=== PATIENT | female | born 1955 | race Native Hawaiian/Other Pacific Islander ===

== ENCOUNTER 2018-07-16 19:54 | Inpatient (IN) | payer SELFPAY ==
[~2018-07-16] VITALS: Ht 154.9 cm; Wt 84.8 kg
[2018-07-16] MEDS ORDERED: cloNIDine HCL 0.1 MG TAB PO ONE (20:15)
[2018-07-16] MEDS ORDERED: InsuLIN REG 1unit/0.01ml Soln (100units/ml) IV ONE (21:00)
[2018-07-16] MEDS ORDERED: SODIUM CHLORIDE 0.9% 1,000 ML IV ONE (21:00)
[2018-07-16 21:16] LABS: Basophils # (auto) 0 uL; Basophils % (auto) 0.7 % (0.0-2.0); Eosinophils # (auto) 0.2 uL; Eosinophils % (auto) 2.5 % (0.0-7.0); Hematocrit 40.6 % (36.0-46.0); Hemoglobin 13.4 g/dL (12.2-16.2); Lymphocytes % (auto) 31.7 % (10.0-50.0); Mean Corpuscular Hemoglobin 29.1 pg (28.0-32.0); Mean Corpuscular Hgb Conc. 32.9 g/dL (32.0-36.0); Mean Corpuscular Volume 88.4 fL (80.0-100.0); Monocytes # (auto) 0.4 uL; Monocytes % (auto) 6.2 % (0.0-12.0); Neutrophils # (auto) 3.7 uL; Neutrophils % (auto) 58.9 % (37.0-80.0); Nucleated Red Blood Cells % 0.1 %; Platelet Count (auto) 218 10^3/uL (140-450); Red Blood Cells 4.59 10^6/uL (4.0-5.20); Red Cell Distribution Width 13.3 % (11.8-14.3); White Blood Cell 6.2 10^3/uL (4.4-10.8)
[2018-07-16 21:17] LABS: Chloride 101 mmol/L (98-107); Potassium 4.3 mmol/L (3.5-5.1); Sodium 133 mmol/L (136-145)
[2018-07-16 21:19] LABS: Albumin 2.7 g/dL (3.4-5.0); Anion Gap 9 (5-15); Blood Urea Nitrogen 21 mg/dL (7-18); Calcium 8.2 mg/dL (8.5-10.1); Carbon Dioxide 23 mmol/L (21-32)
[2018-07-16 21:20] LABS: INR 0.87 (0.9-1.15); Partial Thromboplastin Time 25.4 sec (23.78-33.04); Prothrombin Time 9.4 sec (9.27-12.13)
[2018-07-16 21:22] LABS: Alanine Aminotransferase 18 U/L (13-56); Aspartate Aminotransferase 24 U/L (15-37); BUN/Creatinine Ratio 19.8; GFR African American 67 mL/min; GFR Non-African American 56 mL/min
[2018-07-16 21:25] LABS: Alkaline Phosphatase 120 U/L (45-117); Bilirubin, Total 0.3 mg/dL (0.2-1.0); Total Protein 7.2 g/dL (6.4-8.2)
[2018-07-16 21:38] LABS: Glucose 435 mg/dL (74-106)
[2018-07-16] MEDS ORDERED: ONDANSETRON HCL 4 MG/2 ML VIAL IV ONE (22:00)
[2018-07-16] MEDS ORDERED: FUROSEMIDE 20 MG/2 ML VIAL IV ONE (23:30)
[2018-07-17] MEDS ORDERED: ONDANSETRON HCL 4 MG/2 ML VIAL IV PRN (01:15)
[2018-07-17] MEDS ORDERED: NITROGLYCERIN 0.4 MG SL TAB SL PRN (01:15)
[2018-07-17] MEDS ORDERED: MORPHINE SULF INJ 2 MG/ML SYRINGE 1ML IV PRN (01:15)
[2018-07-17] MEDS ORDERED: TEMAZEPAM 15 MG CAP PO PRN (01:15)
[2018-07-17] MEDS ORDERED: ACETAMINOPHEN 325 MG TAB PO PRN (01:15)
[2018-07-17] MEDS ORDERED: IOHEXOL 350 MG/ML 100ML IJ ONE (01:18)
[2018-07-17] MEDS: HYDROcodone-ACET 5/325MG TAB PO PRN ×2 (02:15→10:34)
[2018-07-17 03:07] LABS: Urine Bacteria MANY /hpf (None Seen); Urine Blood 1+ /uL (Negative); Urine Hyaline Cast FEW /lpf (0 - 2); Urine Mucus FEW (None Seen); Urine WBC 24 /hpf (0 - 5)
[2018-07-17] MEDS ORDERED: DEXTROSE (50%) 50ML SYRG IV PRN (06:30)
[2018-07-17] MEDS: ASPirin 81 mg TAB PO SCH (10:25)
[2018-07-17] MEDS: FAMOTIDINE 20 MG TAB PO SCH ×2 (10:32→21:13)
[2018-07-17] MEDS: FUROSEMIDE 20 MG TAB PO SCH (10:32)
[2018-07-17] MEDS: amLODIPine BESYLATE 5 MG TAB PO SCH (10:32)
--- NOTE | 2018-07-17 11:00 | NUR ---
ADMIT: Telemetry admit from ER PEGGY QUEZADANOAHDELL admitted to Telemetry unit after SBAR received. Patient oriented to JASMIN ANDRADE, primary RN, unit, room, bed, and unit policies regarding patient care and visiting hours. Patient now on continuous telemetry monitoring, tele box # 32 and telemetry reading on arrival to unit is SR 64. Patient on room air, weighed by bedscale and encouraged to call if they need something. All questions and concerns addressed, patient verbalized understanding. Note:
[2018-07-17 11:10] VITALS: BP 136/71
[2018-07-17] MEDS ORDERED: PNEUMOCOCCAL VACC POLYS 25 MCG/0.5 ML VIAL IM ONE ×2 (11:45→16:00)
[2018-07-17] MEDS ORDERED: CARV6.25 PO (11:46)
[2018-07-17] MEDS ORDERED: METF-370 PO (11:46)
[2018-07-17] MEDS ORDERED: INSU70IN3 SC (11:46)
[2018-07-17] MEDS: ACCU-CHEK COMFORT CURVE STRIP VI SCH ×2 (12:00→18:00)
[2018-07-17] MEDS: InsuLIN REG 1unit/0.01ml Soln (100units/ml) SC SCH ×3 (12:00→17:40)
--- NOTE | 2018-07-17 12:40 | NUR ---
MD: Dr Browning at bedside to see patient.
[2018-07-17 13:00] VITALS: BP 148/71
[2018-07-17] MEDS ORDERED: INSULIN LANTUS (GLARGINE) 1 /0.01ml (100units/ml) SC ONE (13:00)
[2018-07-17 17:18] VITALS: BP 137/80
[2018-07-17] MEDS: INSULIN NPH Isophane (HUMAN) 1unit/0.01ml Susp(100units/ml) SC SCH (18:00)
--- NOTE | 2018-07-17 19:12 | NUR ---
CLOSING SHIFT NOTE: Report given to NOC RNJonathan. Endorsed care of patient.
--- NOTE | 2018-07-17 19:45 | NUR ---
Opening Shift Note Assumed care of patient, awake and alert. No S/S of distress/SOB or pain. Instructed on POC and to call for assist PRN, will continue to monitor for changes Q1hr and PRN.
[2018-07-17 21:11] VITALS: BP 113/66
[2018-07-17] MEDS: ATORVASTATIN 20 MG TAB PO SCH (21:14)
[2018-07-17] MEDS ORDERED: INSULIN LANTUS (GLARGINE) 1 /0.01ml (100units/ml) SC SCH (22:00)
--- NOTE | 2018-07-18 00:30 | NUR ---
The patient c/o a headache that she describes as a severity of 6 out 10. Will treat pain with PRN pain medication.
[2018-07-18] MEDS: HYDROcodone-ACET 5/325MG TAB PO PRN ×2 (00:44→22:29)
[2018-07-18 04:54] VITALS: BP 119/61
[2018-07-18] MEDS: ACCU-CHEK COMFORT CURVE STRIP VI SCH ×5 (06:00→22:00)
[2018-07-18] MEDS: InsuLIN REG 1unit/0.01ml Soln (100units/ml) SC SCH ×5 (06:00→22:00)
[2018-07-18 06:06] LABS: Basophils # (auto) 0 uL; Basophils % (auto) 0.7 % (0.0-2.0); Eosinophils # (auto) 0.3 uL; Hematocrit 37.6 % (36.0-46.0); Hemoglobin 12.8 g/dL (12.2-16.2); Lymphocytes # (auto) 2.2 uL; Lymphocytes % (auto) 39.4 % (10.0-50.0); Mean Corpuscular Hemoglobin 29.6 pg (28.0-32.0); Mean Corpuscular Hgb Conc. 34.1 g/dL (32.0-36.0); Mean Corpuscular Volume 86.8 fL (80.0-100.0); Monocytes # (auto) 0.4 uL; Monocytes % (auto) 6.8 % (0.0-12.0); Neutrophils # (auto) 2.7 uL; Neutrophils % (auto) 47.1 % (37.0-80.0); Platelet Count (auto) 195 10^3/uL (140-450); Red Blood Cells 4.33 10^6/uL (4.0-5.20); White Blood Cell 5.7 10^3/uL (4.4-10.8)
[2018-07-18 06:15] LABS: Calcium 8.2 mg/dL (8.5-10.1); Potassium 3.5 mmol/L (3.5-5.1)
[2018-07-18 06:18] LABS: BUN/Creatinine Ratio 27.1
[2018-07-18 06:31] LABS: Cholesterol 210 mg/dL (< 200); HDL Cholesterol 60 mg/dL (40-59); LDL Cholesterol 125 mg/dL (< 100); Triglycerides 206 mg/dL (< 150)
[2018-07-18] MEDS: INSULIN NPH Isophane (HUMAN) 1unit/0.01ml Susp(100units/ml) SC SCH ×2 (07:05→18:16)
--- NOTE | 2018-07-18 07:36 | NUR ---
CLOSING NOTE Care has been endorsed to day shift nurse.
[2018-07-18] MEDS: FAMOTIDINE 20 MG TAB PO SCH ×2 (09:42→22:30)
[2018-07-18] MEDS: FUROSEMIDE 20 MG TAB PO SCH ×2 (09:43→18:13)
[2018-07-18] MEDS: LISINOPRIL 5 MG TAB PO SCH (09:43)
[2018-07-18] MEDS: amLODIPine BESYLATE 5 MG TAB PO SCH (09:43)
[2018-07-18] MEDS: ASPirin 81 mg TAB PO SCH (09:44)
[2018-07-18 09:52] VITALS: BP 128/70
--- NOTE | 2018-07-18 11:37 | NUR ---
Re: BG BG 458 repeated BG 416, paged for further instruction. Patient does not have any other sign or symptoms will continue to monitor.
--- NOTE | 2018-07-18 11:43 | NUR ---
Re: paged Informed MD of the elevated BG, will give the 15 unit, and if still elevated change it to aggressive scale if BG above 350.
[2018-07-18 13:00] VITALS: BP 142/73
[2018-07-18 17:00] VITALS: BP 132/69
[2018-07-18] MEDS ORDERED: DEXTROSE (50%) 50ML SYRG IV PRN (17:30)
[2018-07-18 22:00] VITALS: BP 127/76
--- NOTE | 2018-07-18 22:15 | NUR ---
Patient c/o a headache and request pain medication. Will medicate with PRN pain medication.
[2018-07-18] MEDS: ATORVASTATIN 20 MG TAB PO SCH (22:30)
[2018-07-18] MEDS: POTASSIUM CHLORIDE 8 MEQ TAB PO SCH (22:30)
--- NOTE | 2018-07-18 22:45 | NUR ---
IV ATTEMPT Attempted to place an IV in the right forearm 2x but was unsuccessful.
[2018-07-19 05:53] VITALS: BP 140/83
[2018-07-19 06:16] LABS: Basophils # (auto) 0 uL; Basophils % (auto) 0.8 % (0.0-2.0); Eosinophils # (auto) 0.4 uL; Eosinophils % (auto) 6.6 % (0.0-7.0); Hematocrit 37.6 % (36.0-46.0); Hemoglobin 12.8 g/dL (12.2-16.2); Lymphocytes # (auto) 2.3 uL; Mean Corpuscular Hemoglobin 29.6 pg (28.0-32.0); Mean Corpuscular Hgb Conc. 33.9 g/dL (32.0-36.0); Mean Corpuscular Volume 87.2 fL (80.0-100.0); Monocytes # (auto) 0.5 uL; Monocytes % (auto) 7.5 % (0.0-12.0); Neutrophils # (auto) 2.9 uL; Neutrophils % (auto) 47.1 % (37.0-80.0); Platelet Count (auto) 213 10^3/uL (140-450); Red Blood Cells 4.31 10^6/uL (4.0-5.20); White Blood Cell 6.1 10^3/uL (4.4-10.8)
[2018-07-19] MEDS: FUROSEMIDE 20 MG TAB PO SCH ×2 (06:31→19:35)
[2018-07-19 06:34] LABS: Anion Gap 7 (5-15); BUN/Creatinine Ratio 29.2; Blood Urea Nitrogen 21 mg/dL (7-18); Calcium 8.1 mg/dL (8.5-10.1); Carbon Dioxide 27 mmol/L (21-32); Chloride 107 mmol/L (98-107); GFR African American 105 mL/min; GFR Non-African American 87 mL/min; Glucose 98 mg/dL (74-106); Potassium 3.5 mmol/L (3.5-5.1); Sodium 141 mmol/L (136-145)
[2018-07-19] MEDS: InsuLIN REG 1unit/0.01ml Soln (100units/ml) SC SCH ×4 (06:35→21:44)
[2018-07-19] MEDS: INSULIN NPH Isophane (HUMAN) 1unit/0.01ml Susp(100units/ml) SC SCH ×2 (06:36→18:26)
[2018-07-19] MEDS: ACCU-CHEK COMFORT CURVE STRIP VI SCH ×4 (06:36→21:44)
--- NOTE | 2018-07-19 07:06 | NUR ---
Closing shift note Care has been endorsed to the day shift RN.
[2018-07-19] MEDS: FAMOTIDINE 20 MG TAB PO SCH ×2 (10:06→21:39)
[2018-07-19] MEDS: LISINOPRIL 5 MG TAB PO SCH (10:06)
[2018-07-19] MEDS: POTASSIUM CHLORIDE 8 MEQ TAB PO SCH ×2 (10:06→21:40)
[2018-07-19] MEDS: amLODIPine BESYLATE 5 MG TAB PO SCH (10:07)
[2018-07-19] MEDS: ASPirin 81 mg TAB PO SCH (10:07)
[2018-07-19] MEDS ORDERED: cefTRIAXone 1GM/50ML D5W 50 ML IV ONE (12:45)
--- NOTE | 2018-07-19 20:00 | NUR ---
IV insertion IV access obtained, via clean sterile technique by inserting a 20 gauge catheter at right forearm after 2 attempt(s). IV secured properly. No trauma to site. Patient tolerated well.
[2018-07-19 21:30] VITALS: BP 154/91
[2018-07-19] MEDS: ATORVASTATIN 20 MG TAB PO SCH (21:39)
[2018-07-20] VITALS (7 sets, daily range): BP systolic 117–153; BP diastolic 67–85
[2018-07-20] MEDS: FUROSEMIDE 20 MG TAB PO SCH ×2 (06:08→17:57)
[2018-07-20 06:18] LABS: Basophils # (auto) 0 uL; Basophils % (auto) 0.5 % (0.0-2.0); Eosinophils # (auto) 0.3 uL; Eosinophils % (auto) 5.4 % (0.0-7.0); Hematocrit 40.7 % (36.0-46.0); Hemoglobin 13.8 g/dL (12.2-16.2); Mean Corpuscular Hemoglobin 29.7 pg (28.0-32.0); Mean Corpuscular Volume 87.2 fL (80.0-100.0); Monocytes # (auto) 0.4 uL; Neutrophils # (auto) 3.5 uL; Neutrophils % (auto) 55.1 % (37.0-80.0); Nucleated Red Blood Cells % 0.1 %; Platelet Count (auto) 226 10^3/uL (140-450); Red Blood Cells 4.67 10^6/uL (4.0-5.20); Red Cell Distribution Width 13.4 % (11.8-14.3); White Blood Cell 6.3 10^3/uL (4.4-10.8)
[2018-07-20 06:24] LABS: Chloride 106 mmol/L (98-107); Sodium 140 mmol/L (136-145)
[2018-07-20 06:29] LABS: Anion Gap 7 (5-15); Blood Urea Nitrogen 19 mg/dL (7-18); Calcium 8.8 mg/dL (8.5-10.1); Carbon Dioxide 27 mmol/L (21-32); Glucose 131 mg/dL (74-106)
[2018-07-20 06:31] LABS: BUN/Creatinine Ratio 23.2; GFR African American 91 mL/min; GFR Non-African American 75 mL/min
[2018-07-20] MEDS: InsuLIN REG 1unit/0.01ml Soln (100units/ml) SC SCH ×4 (06:41→22:00)
[2018-07-20] MEDS: ACCU-CHEK COMFORT CURVE STRIP VI SCH ×4 (06:41→22:00)
[2018-07-20] MEDS: INSULIN NPH Isophane (HUMAN) 1unit/0.01ml Susp(100units/ml) SC SCH ×2 (06:41→17:57)
--- NOTE | 2018-07-20 07:10 | NUR ---
Assumed care of pt from night club manager RN. PT presented A&Ox4, in no pain, SOB, or distress. IV present and patent in rt forearm and lt forearm. Bed is in the lower locked position with two bedrails up.
--- NOTE | 2018-07-20 07:25 | NUR ---
CLOSING SHIFT NOTE The patient is currently stable. Will endorse care to day shift RN.
--- NOTE | 2018-07-20 08:20 | NUR ---
Pt left for stress test. Pt stable in no distress. Pt returned from stress test at 0902, stable in no distress.
[2018-07-20] MEDS: cefTRIAXone 1GM/50ML D5W 50 ML IV SCH (09:03)
[2018-07-20] MEDS: ADENOSINE 72 MG in GIVE UN-DILUTED 0 ML IV STA ×2 (09:22→10:50)
[2018-07-20] MEDS: LISINOPRIL 5 MG TAB PO SCH (10:27)
[2018-07-20] MEDS: amLODIPine BESYLATE 5 MG TAB PO SCH (10:27)
[2018-07-20] MEDS: ASPirin 81 mg TAB PO SCH (10:28)
[2018-07-20] MEDS: POTASSIUM CHLORIDE 8 MEQ TAB PO SCH ×2 (10:28→22:00)
[2018-07-20] MEDS: FAMOTIDINE 20 MG TAB PO SCH ×2 (10:29→22:00)
--- NOTE | 2018-07-20 10:30 | NUR ---
PT left for stress test. Pt left for second half of stress test in no distress and stable. Pt returned from stress test stable and in no distress at 1133.
--- NOTE | 2018-07-20 12:49 | NUR ---
NUTRITION ASSESSMENT NOTES Please refer to link notes of nutrition screen form filed under the intervention section of the plan of care for further details. Est. Needs: 1300 kcal to 1700 kcal (15-20 kcal/kgBW), 69 gms to 86 gms pro (0.8-1.0 gms/kgBW). Will continue to monitor pertinent labs and reassess nutrient need prn Thank you. Addendum: 07/20/18 at [address] Amended: Links added.
[2018-07-20] MEDS ORDERED: FUR20T PO (13:16)
[2018-07-20] MEDS ORDERED: ATOR20TA50 PO (13:16)
[2018-07-20] MEDS ORDERED: LISI-275 PO (13:16)
[2018-07-20] MEDS ORDERED: ASPI81CH43 PO (13:16)
--- NOTE | 2018-07-20 18:43 | NUR ---
CARDIOLITE OF THIS TIME IS STILL NOT RESULTED. PATIENT ONLY TO BE DISCHARGED WHEN THE CARDIOLITE IS POSITIVE. WILL CANCEL DISCHARGE ORDER BECAUSE OF THE FACT THAT THERE IS NOT A RESULT. WILL INFORM ADVERTISING PRODUCTION MANAGER.
[2018-07-20] MEDS: ATORVASTATIN 20 MG TAB PO SCH (22:00)
--- NOTE | 2018-07-20 22:00 | NUR ---
PATIENT EDUCATION PROVIDED PATIENT PRINTED INFORMATION ON CORONARY ANGIOGRAM WITH STENT AND ANGIOPLASTY. PATIENT VERBALIZES UNDERSTANDING NO QUESTIONS ASKED.
[2018-07-21 05:00] VITALS: BP 132/64
[2018-07-21] MEDS: FUROSEMIDE 20 MG TAB PO SCH ×2 (05:08→18:05)
[2018-07-21] MEDS: ACCU-CHEK COMFORT CURVE STRIP VI SCH ×4 (05:08→21:22)
[2018-07-21] MEDS: InsuLIN REG 1unit/0.01ml Soln (100units/ml) SC SCH ×4 (05:12→21:35)
[2018-07-21] MEDS: INSULIN NPH Isophane (HUMAN) 1unit/0.01ml Susp(100units/ml) SC SCH ×2 (07:00→18:06)
--- NOTE | 2018-07-21 07:30 | NUR ---
OPENING SHIFT NOTE: Received report from NOC RNRamila. Assumed care of patient. Patient resting comfortably in bed, denies pain. Bed in lowest position, rails x2 up and call light within reach. Updated on plan of care. Will continue to monitor.
[2018-07-21 08:36] VITALS: BP 132/73
[2018-07-21] MEDS: amLODIPine BESYLATE 5 MG TAB PO SCH (10:06)
[2018-07-21] MEDS: cefTRIAXone 1GM/50ML D5W 50 ML IV SCH (10:06)
[2018-07-21] MEDS: LISINOPRIL 5 MG TAB PO SCH (10:07)
[2018-07-21] MEDS: POTASSIUM CHLORIDE 8 MEQ TAB PO SCH ×2 (10:07→21:22)
[2018-07-21] MEDS: FAMOTIDINE 20 MG TAB PO SCH ×2 (10:07→21:21)
[2018-07-21] MEDS: ASPirin 81 mg TAB PO SCH (10:07)
[2018-07-21 11:57] VITALS: BP 141/76
[2018-07-21] MEDS ORDERED: HYDROcodone-ACET 5/325MG TAB PO PRN (15:00)
[2018-07-21] MEDS ORDERED: MORPHINE SULF INJ 2 MG/ML SYRINGE 1ML IV PRN (15:15)
[2018-07-21 16:41] VITALS: BP 122/64
--- NOTE | 2018-07-21 19:02 | NUR ---
CLOSING SHIFT NOTE: Report given to NOC Ramila LEAL. Endorsed care of patient.
--- NOTE | 2018-07-21 21:00 | NUR ---
CONSENTE PATIENT TO LEAFT HEART CATHERIZATION AND PLACED IN CHART
[2018-07-21] MEDS: ATORVASTATIN 20 MG TAB PO SCH (21:21)
--- NOTE | 2018-07-22 | NUR ---
INSTUCTED PATIENT TO KEEP NPO AFTER MIDNIGHT FOR LEFT HEART CATHERIZATION
[2018-07-22 02:32] VITALS: BP 100/72
[2018-07-22 05:26] VITALS: BP 121/57
[2018-07-22] MEDS: FUROSEMIDE 20 MG TAB PO SCH ×2 (05:41→17:22)
[2018-07-22] MEDS: InsuLIN REG 1unit/0.01ml Soln (100units/ml) SC SCH ×4 (05:42→20:43)
[2018-07-22] MEDS: ACCU-CHEK COMFORT CURVE STRIP VI SCH ×4 (05:42→20:23)
[2018-07-22] MEDS: INSULIN 70/30 1unit/0.01ml Susp (100units/ml) SC SCH (08:12)
[2018-07-22 09:03] VITALS: BP 132/71
[2018-07-22] MEDS: cefTRIAXone 1GM/50ML D5W 50 ML IV SCH (10:04)
[2018-07-22] MEDS: POTASSIUM CHLORIDE 8 MEQ TAB PO SCH ×2 (10:05→20:23)
[2018-07-22] MEDS: amLODIPine BESYLATE 5 MG TAB PO SCH (10:05)
[2018-07-22] MEDS: ASPirin 81 mg TAB PO SCH (10:05)
[2018-07-22] MEDS: FAMOTIDINE 20 MG TAB PO SCH ×2 (10:05→20:23)
[2018-07-22] MEDS: LISINOPRIL 5 MG TAB PO SCH (10:07)
[2018-07-22 11:33] VITALS: BP 109/66
[2018-07-22] MEDS ORDERED: IODIXANOL 320MG/ML 100ML BTL IV ONE (13:13)
[2018-07-22] MEDS ORDERED: LIDOCAINE 2%HCL (LOCAL ANESTH.) INJ 20ML MDV ONE (13:13)
[2018-07-22] MEDS ORDERED: SODIUM CHL 0.9% 0 ML ONE (15:43)
[2018-07-22] MEDS ORDERED: fentaNYL CITRATE 100 MCG/2 ML VL ONE (15:43)
[2018-07-22] MEDS ORDERED: ANGIOMAX 250 MG VIAL IV ONE (15:43)
[2018-07-22] MEDS ORDERED: MIDAZOLAM HCL 1MG/1ML-2 ML VIAL ONE (15:43)
--- NOTE | 2018-07-22 17:17 | NUR ---
patients blood glucose was 42 gave 50 ml of dextrose
--- NOTE | 2018-07-22 17:47 | NUR ---
RECHECKED BLOOD GLUCOSE WAS 198
--- NOTE | 2018-07-22 18:21 | NUR ---
HAROON RIVERS CALLED BACK INFORMED HIM OF LAB RESULTS
[2018-07-22] MEDS: ATORVASTATIN 20 MG TAB PO SCH (20:22)
[2018-07-22] MEDS: INSULIN NPH Isophane (HUMAN) 1unit/0.01ml Susp(100units/ml) SC SCH (20:44)
[2018-07-23 05:20] VITALS: BP 141/71
[2018-07-23] MEDS: FUROSEMIDE 20 MG TAB PO SCH (05:23)
[2018-07-23] MEDS: ACCU-CHEK COMFORT CURVE STRIP VI SCH ×2 (05:29→11:30)
[2018-07-23] MEDS: InsuLIN REG 1unit/0.01ml Soln (100units/ml) SC SCH ×2 (05:39→11:30)
--- NOTE | 2018-07-23 06:56 | NUR ---
PATIENT KEPT NPO AFTER MIDNIGHT FOR LEFT HEART CATH. CONSENTS IN PATIENTS CHART AND SIGNED.
--- NOTE | 2018-07-23 07:00 | NUR ---
BS PATIENT BS-209 ADMINISTERED REGULAR INSULIN 8 UNITS SQ PER REGULAR INSULIN SLIDING SCALE.
--- NOTE | 2018-07-23 07:38 | NUR ---
CARE RECEIVED Report received from ANA RN. Patient off unit at this time for scheduled procedure.
[2018-07-23] MEDS ORDERED: ANGIOMAX 250 MG VIAL IV ONE (07:43)
[2018-07-23] MEDS ORDERED: fentaNYL CITRATE 100 MCG/2 ML VL ONE (07:44)
[2018-07-23] MEDS ORDERED: SODIUM CHL 0.9% 0 ML ONE (07:44)
[2018-07-23] MEDS ORDERED: LIDOCAINE 2%HCL (LOCAL ANESTH.) INJ 20ML MDV ONE (07:44)
[2018-07-23] MEDS ORDERED: MIDAZOLAM HCL 1MG/1ML-2 ML VIAL ONE (07:44)
[2018-07-23] MEDS ORDERED: IOHEXOL 300 MG/ML 75ml BOTTLE ONE (07:45)
[2018-07-23] MEDS: INSULIN 70/30 1unit/0.01ml Susp (100units/ml) SC SCH (08:00)
--- NOTE | 2018-07-23 09:12 | NUR ---
RETURN TO UNIT Patient returned to unit via bed with two staff members. Dressing to right groin dry and intact. Call light in reach.
--- NOTE | 2018-07-23 09:35 | NUR ---
ROUNDING Dr banegas rounding on patient, discussed plans discharge home today.
[2018-07-23] MEDS: cefTRIAXone 1GM/50ML D5W 50 ML IV SCH (09:42)
[2018-07-23] MEDS: ASPirin 81 mg TAB PO SCH (09:43)
[2018-07-23] MEDS: amLODIPine BESYLATE 5 MG TAB PO SCH (09:43)
[2018-07-23] MEDS: LISINOPRIL 5 MG TAB PO SCH (09:43)
[2018-07-23] MEDS: FAMOTIDINE 20 MG TAB PO SCH (09:43)
[2018-07-23] MEDS: POTASSIUM CHLORIDE 8 MEQ TAB PO SCH (09:45)
--- NOTE | 2018-07-23 09:54 | NUR ---
NO PCP Patient states she moved to area from [place]. Patients states she does not have PCP. Phone call placed to Celi Dumont to assist patient with discharge planning.
[2018-07-23 11:19] VITALS: BP 114/63
[2018-07-23 13:00] VITALS: BP 114/63
--- NOTE | 2018-07-23 16:25 | NUR ---
Discharge instructions given as ordered. Encourage to follow up with PMD as instructed, information given. All questions and concerns addressed. Patient verbalized understanding. Medication reconciliation form completed and copy given to patient. IV removed with catheter intact, pressure dressing applied. Telemetry unit returned to ICU. Patient taken to vehicle via wheelchair with all personal belongings, accompanied by staff and family member. No distress noted at time of departure.
== END 2018-07-23 16:20 | disposition home or self-care (01) | DRG 286 ==
LOC: ER 19:56 → TELE 07-17 03:21 → TELE-WESTW 07-17 11:00
PROVIDERS: ADMIT Nurse Practitioner; ATTEND Internal Medicine
PROC: 4A023N7 Measurement of Cardiac Sampling and Pressure, Left Heart, Percutaneous Approach (ICD-10-PCS; principal; 2018-07-23)
PROC: B2111ZZ Fluoroscopy of Multiple Coronary Arteries using Low Osmolar Contrast (ICD-10-PCS; 2018-07-23)
PROC: B2151ZZ Fluoroscopy of Left Heart using Low Osmolar Contrast (ICD-10-PCS; 2018-07-23)
DX: I25.119 Atherosclerotic heart disease of native coronary artery with unspecified angina pectoris (principal); E43 Unspecified severe protein-calorie malnutrition; I50.43 Acute on chronic combined systolic (congestive) and diastolic (congestive) heart failure; D68.69 Other thrombophilia; E87.1 Hypo-osmolality and hyponatremia; N39.0 Urinary tract infection, site not specified; E11.21 Type 2 diabetes mellitus with diabetic nephropathy; E78.5 Hyperlipidemia, unspecified; F41.9 Anxiety disorder, unspecified; I11.0 Hypertensive heart disease with heart failure; I27.20 Pulmonary hypertension, unspecified; I48.0 Paroxysmal atrial fibrillation; Z79.4 Long term (current) use of insulin; Z91.14 Patient's other noncompliance with medication regimen; Z79.899 Other long term (current) drug therapy; Z68.35 Body mass index [BMI] 35.0-35.9, adult; Z23 Encounter for immunization
CPT/HCPCS: 36415; 71045; 71275; 78452; 80048; 80053; 80061; 81001; 82010; 82962; 83036; 83880; 84443; 84484; 85025; 85379; 85610; 85730; 87086; 93005; 93017; 93306; 93970; 94761; 96374; 96375; A6257; G0378; J0153; J0696; J1815; J2250; Q9967